=== PATIENT | female | born 1965 | race African-American/Black ===

== ENCOUNTER 2017-07-24 10:34 | Emergency (ER) | payer SELFPAY ==
[~2017-07-24] VITALS: Ht 165.1 cm; Wt 54.0 kg
[2017-07-24] MEDS ORDERED: IPRATROPIUM/ALBUTEROL 0.5-3(2.5)MG/3ML NEB HHN ONE (21:45)
[2017-07-24 22:45] LABS: BASOPHILS % 0.8 % (0.0-2.0); EOSINOPHILS % 2.8 % (0.0-5.0); HEMATOCRIT. 38.3 % (36.0-48.0); HEMOGLOBIN. 12.9 g/dL (12.0-16.0); LYMPHOCYTES % 58.8 % (20.0-50.0); MEAN CORPUSCULAR HEMOGLOBIN 33.4 pg (28.0-32.0); MEAN CORPUSCULAR VOLUME 99.5 fL (81.0-99.0); MONOCYTES % 9.6 % (2.0-8.0); PLATELET 212 x1000/uL (130-400); RED BLOOD CELL COUNT 3.85 mill/uL (4.2-5.4); RED CELL DISTRIBUTION WIDTH 12.9 % (11.6-14.6)
[2017-07-24 23:05] LABS: CARBON DIOXIDE 31 mEq/L (21-32); CHLORIDE 106 mEq/L (98-107)
[2017-07-24 23:32] LABS: CLARITY URINE CLEAR (CLEAR); COLOR URINE YELLOW (YELLOW); KETONES URINE TRACE (NEGATIVE); LEUKOCYTE ESTERASE URINE NEGATIVE (NEGATIVE); NITRITE URINE NEGATIVE (NEGATIVE); OCCULT BLOOD URINE NEGATIVE (NEGATIVE); PROTEIN URINE NEGATIVE (NEGATIVE); SPECIFIC GRAVITY URINE 1.022 (1.005-1.030); UROBILINOGEN URINE 0.2 E.U./dL (0.2-1.0)
[2017-07-25 00:05] VITALS: BP 151/88
== END 2017-07-25 00:07 | disposition home or self-care (01) ==
LOC: ER 10:54
DX: J06.9 Acute upper respiratory infection, unspecified (principal); I10 Essential (primary) hypertension; Z87.891 Personal history of nicotine dependence; J45.909 Unspecified asthma, uncomplicated
CPT/HCPCS: 36415; 71045; 80053; 81003; 81025; 85025; 87804; 94640; 99285; J7620

== ENCOUNTER 2019-04-10 11:44 | Emergency (ER) | payer OTHER, MEDICAID ==
[~2019-04-10] VITALS: Ht 167.6 cm; Wt 53.0 kg
[2019-04-10 12:40] VITALS: BP 180/99
[2019-04-10] MEDS ORDERED: TETANUS, DIPHTHERIA, PERTUSSIS VAC/PF 0.5ML (>7YR OLD) IM ONE (16:45)
== END 2019-04-10 17:07 | disposition home or self-care (01) ==
LOC: ER 11:44
DX: S61.452A Open bite of left hand, initial encounter (principal); W54.0XXA Bitten by dog, initial encounter; Y93.89 Activity, other specified; Y92.89 Other specified places as the place of occurrence of the external cause; I10 Essential (primary) hypertension
CPT/HCPCS: 90471; 90715; 99283

== ENCOUNTER 2019-07-01 16:45 | Emergency (ER) | payer OTHER, MEDICAID ==
[~2019-07-01] VITALS: Ht 167.6 cm; Wt 49.0 kg
[2019-07-01] MEDS ORDERED: SODIUM CHLORIDE 0.9% 1,000 ML IV ONE (17:05)
[2019-07-01 17:22] LABS: BASOPHILS % 1.1 % (0.0-2.0); EOSINOPHILS % 1.9 % (0.0-5.0); HEMATOCRIT. 36.4 % (36.0-48.0); HEMOGLOBIN. 12.3 g/dL (12.0-16.0); MEAN CORPUSCULAR HEMOGLOBIN 33.8 pg (28.0-32.0); MEAN CORPUSCULAR VOLUME 100.4 fL (81.0-99.0); MEAN PLATELET VOLUME 7.4 fl (7.4-10.4); MONOCYTES % 4.9 % (2.0-8.0); NEUTROPHILS % 50.1 % (40.0-76.0); PLATELET 322 x1000/uL (130-400); RED BLOOD CELL COUNT 3.62 mill/uL (4.2-5.4)
[2019-07-01 17:28] LABS: CHLORIDE 109 mEq/L (98-107)
[2019-07-01 17:37] LABS: PROTHROMBIN TIME 10.2 sec (9.6-11.0)
[2019-07-01] MEDS ORDERED: KETOROLAC 30MG/ML VIAL IV ONE (17:45)
[2019-07-01 17:53] LABS: CLARITY URINE CLEAR (CLEAR); COLOR URINE YELLOW (YELLOW); KETONES URINE TRACE (NEGATIVE); LEUKOCYTE ESTERASE URINE NEGATIVE (NEGATIVE); NITRITE URINE NEGATIVE (NEGATIVE); OCCULT BLOOD URINE NEGATIVE (NEGATIVE); PH URINE 6.5 (4.5-8.0); PROTEIN URINE NEGATIVE (NEGATIVE)
[2019-07-01 20:25] VITALS: BP 152/75
[2019-07-04 09:07] LABS: CHLAMYDIA TRACHOMATIS NAA Negative (Negative); NEISSERIA GONORRHOEAE NAA Negative (Negative)
== END 2019-07-01 20:30 | disposition home or self-care (01) ==
LOC: ER 16:45
DX: D25.9 Leiomyoma of uterus, unspecified (principal); I10 Essential (primary) hypertension
CPT/HCPCS: 36415; 76830; 76856; 80053; 81003; 83690; 85025; 85610; 87086; 87210; 87491; 87591; 96374; 99284; J1885; J7030; Z7610

== ENCOUNTER 2019-07-16 10:22 | Emergency (ER) | payer OTHER, MEDICAID ==
[~2019-07-16] VITALS: Ht 165.1 cm; Wt 50.0 kg
[2019-07-16] MEDS ORDERED: KETOROLAC 30MG/ML VIAL IV STA (14:16)
[2019-07-16] MEDS ORDERED: SODIUM CHLORIDE 0.9% 1,000 ML IV ONE (14:16)
[2019-07-16] MEDS ORDERED: ONDANSETRON HCL 4MG/2ML INJ IV STA (14:16)
[2019-07-16 14:33] LABS: CHLORIDE 108 mEq/L (98-107)
[2019-07-16 14:34] LABS: BASOPHILS % 0.9 % (0.0-2.0); EOSINOPHILS % 2.7 % (0.0-5.0); HEMATOCRIT. 38.9 % (36.0-48.0); HEMOGLOBIN. 13.2 g/dL (12.0-16.0); LYMPHOCYTES % 24.6 % (20.0-50.0); MEAN CORPUSCULAR HEMOGLOBIN 33.8 pg (28.0-32.0); MEAN CORPUSCULAR VOLUME 99.8 fL (81.0-99.0); MEAN PLATELET VOLUME 7.9 fl (7.4-10.4); MONOCYTES % 5.2 % (2.0-8.0); NEUTROPHILS % 66.6 % (40.0-76.0); PLATELET 294 x1000/uL (130-400); RED CELL DISTRIBUTION WIDTH 13.2 % (11.6-14.6)
[2019-07-16] MEDS ORDERED: MAGNESIUM/ALUMINUM HYDROXIDE/SIMETHICONE 30ML UDC PO STA (15:23)
[2019-07-16 16:17] VITALS: BP 134/79
== END 2019-07-16 16:20 | disposition home or self-care (01) ==
LOC: ER 10:22
DX: R10.9 Unspecified abdominal pain (principal); R11.2 Nausea with vomiting, unspecified; I10 Essential (primary) hypertension
CPT/HCPCS: 36415; 71045; 80053; 85025; 93005; 96361; 96374; 96375; 99284; J1885; J2405; J7030

== ENCOUNTER 2022-07-29 10:45 | Emergency (ER) | payer MEDICAID, OTHER ==
[~2022-07-29] VITALS: Ht 167.6 cm; Wt 55.0 kg
[2022-07-29 10:50] VITALS: BP 162/90
[2022-07-29] MEDS ORDERED: ALBU6.7H15 INH (11:08)
[2022-07-29] MEDS ORDERED: DEX6 MT (11:08)
[2022-07-29] MEDS ORDERED: GUAI600T26 MT (11:08)
[2022-07-29] MEDS ORDERED: ACET-2708 MT (11:08)
[2022-07-29] MEDS ORDERED: AMLO10TA80 MT (11:15)
[2022-07-29] MEDS: GUAIFENESIN 600MG ER TABLET PO ONE (11:28)
== END 2022-07-29 12:02 | disposition home or self-care (01) ==
LOC: ER 10:45
DX: U07.1 COVID-19 (principal); B34.9 Viral infection, unspecified; I10 Essential (primary) hypertension; Z00.00 Encounter for general adult medical examination without abnormal findings; Z79.899 Other long term (current) drug therapy
CPT/HCPCS: 87426; 99283; C9803

== ENCOUNTER 2025-01-24 10:12 | Emergency (ER) | payer SELFPAY ==
[~2025-01-24] VITALS: Ht 167.6 cm; Wt 54.0 kg
[~2025-01-24 10:12] MED LIST: ACET-2708 MT; ALBU6.7H15 INH; AMLO10TA80 MT; DEX6 MT; GUAI600T26 MT
[2025-01-24 10:44] VITALS: O2SAT 98
[2025-01-24 11:16] LABS: BASOPHILS % 0.7 % (0.0-2.0); EOSINOPHILS % 4.3 % (0.0-5.0); HEMATOCRIT. 41.2 % (36.0-48.0); HEMOGLOBIN. 13.8 g/dL (12.0-16.0); LYMPHOCYTES % 35.6 % (20.0-50.0); MEAN PLATELET VOLUME 8.3 fl (7.4-10.4); MONOCYTES % 5.5 % (2.0-8.0); NEUTROPHILS % 53.9 % (40.0-76.0); PLATELET 302 x1000/uL (130-400); RED BLOOD CELL COUNT 4.20 mill/uL (4.2-5.4); RED CELL DISTRIBUTION WIDTH 13.8 % (11.6-14.6)
[2025-01-24 11:36] LABS: CREATININE 0.8 mg/dL (0.6-1.0); UREA NITROGEN BLOOD 8 mg/dL (9-23)
[2025-01-24 11:37] LABS: TROPONIN I HIGH SENSITIVITY 4 ng/L (3.0-34)
[2025-01-24] MEDS: CLONIDINE 0.1MG TABLET PO ONE (11:37)
[2025-01-24] MEDS: AMLODIPINE 5MG TABLET PO ONE (11:37)
[2025-01-24] MEDS ORDERED: AMLO10TA80 MT (12:50)
[2025-01-24] MEDS ORDERED: CETI10CA2 MT (12:52)
[2025-01-24 13:36] VITALS: BP 155/26; PULSE 80; RESP 15; TEMP 36.7; O2SAT 100
== END 2025-01-24 13:37 | disposition home or self-care (01) ==
LOC: ER 10:12
DX: J34.89 Other specified disorders of nose and nasal sinuses (principal); I10 Essential (primary) hypertension
CPT/HCPCS: 36415; 70160; 80048; 84484; 85025; 93005; 99285